=== PATIENT | male | born 1945 | race Caucasian/White ===

== ENCOUNTER 2025-04-05 11:53 | Outpatient (AMB) | payer MEDICARE, SELFPAY ==
--- OUTSIDE RECORDS SUMMARY | 2025-04-05 14:28 | XMS_ITS | Clinical Summary ---
Author Organization [facility] Address [address] [place] [address] Phone Care Team Providers Care Bartenders Name Role Phone Rafy Russell DO Primary Care Provider Allergies No known active allergies Medications melatonin 10 mg tablet Take 1 tablet (10 mg total) by mouth at bedtime. Active oxymetazoline (Afrin, oxymetazoline,) 0.05 % nasal spray Administer 1 spray into each nostril 1 (one) time each day if needed for congestion. Active ascorbic acid (VITAMIN C) 500 mg chewable tablet Chew 2 tablets (1,000 mg total) 1 (one) time each day. 05/15/20 Active NIFEdipine XL (PROCARDIA XL) 60 mg 24 hr tablet Take 1 tablet (60 mg total) by mouth 1 (one) time each day. 05/15/20 Active losartan (COZAAR) 100 mg tablet Take 1 tablet (100 mg total) by mouth 1 (one) time each day. Active Eliquis 5 mg tablet Take 1 tablet (5 mg total) by mouth 2 (two) times a day. 05/30/20 24 Active coenzyme Q-10 10 mg capsule Take 10 capsules (100 mg total) by mouth 1 (one) time each day. Active chlorthalidone (HYGROTON) 25 mg tablet Take 1 tablet (25 mg total) by mouth 1 (one) time each day. Active folic acid/multivit-m in/lutein (CENTRUM SILVER ORAL) Take 1 tablet by mouth 1 (one) time each day. Active atorvastatin (LIPITOR) 80 mg tablet Take 1 tablet (80 mg total) by mouth 1 (one) time each day. Active cholecalciferol (VITAMIN D-3) 25 mcg (1,000 unit) tablet Take 1 tablet (1,000 Units total) by mouth 1 (one) time each day. Active leuprolide (ELIGARD) 45 mg syringe Inject 45 mg under the skin every 6 (six) months. With urology Active omeprazole (PriLOSEC) [address] capsule Take 1 capsule (40 mg total) by mouth 1 (one) time each day. Do not crush or chew. Active tamsulosin (FLOMAX) 0.4 mg 24 hr capsule Take 1 capsule (0.4 mg total) by mouth 1 (one) time each day after dinner. Capsules should be taken 30 minutes following the same meal each day. Active Multaq 400 mg tablet TAKE 1 TABLET BY MOUTH TWICE A DAY 180 tablet 1 01/18/20 25 Active fluticasone/ume clidin/vilanter (TRELEGY ELLIPTA INHL) Inhale by mouth. 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 90 each 03/09/20 25 Active ezetimibe (ZETIA) 10 mg tabletIndicatio ns:Hypercholest erolemia Take 1 tablet (10 mg total) by mouth 1 (one) time each day. 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 90 each 03/09/20 25 025 Discontinued Hospital, Clinic, or Other Facility Administered Medication Ordered Dose Route Frequency Start Date End Date Status TC-99M tetrofosmin P radio-isotope injection 9.3 millicurie 9.3 millicurie IV Once in imaging 03/23/2025 03/23/2025 Ended regadenoson (LEXISCAN) injection 0.4 mg 0.4 mg IV Once in imaging 03/23/2025 03/23/2025 End ed TC-99M tetrofosmin P radio-isotope injection 30.1 millicurie 30.1 millicurie IV Once in imaging 03/23/2025 03/23/2025 Ende d Active Problems Problem Noted Date Diagnosed Date Secondary hypercoagulable state ([facility] V24) Assessment & Plan (03/09/2025 9:38 AM EDT): Chronic fatigue 03/09/2025 Assessment & Plan (03/09/2025 9:38 AM EDT): As above, fatigue has been notable since starting Eligard which he has assumed is causative. We will continue to follow this. Orders: Complete blood count; Future Bradycardia 03/09/2025 Assessment & Plan (03/09/2025 9:38 AM EDT): As above, we are decreasing carvedilol from 6.25 mg twice daily to 3.125 mg twice daily; he will continue to monitor his heart rates and symptoms at home, calling these results to us in approximately 2 weeks. We will continue to readdress this as indicated. Aortic dilatation ([facility] V24) 03/09/2025 Assessment & Plan (03/09/2025 9:38 AM EDT): Most recent echocardiogram in 2020 showed a mildly dilated aorta at the sinus of Valsalva at 4.1 cm; we will update an echocardiogram for reevaluation of this. Orders: Transthoracic echocardiogram (TTE) complete with PRN contrast, bubble, strain, and 3D order panel; Future Class 1 obesity 07/15/2024 Assessment & Plan (03/09/2025 9:38 AM EDT): Patient is obese. Approaches towards weight loss are discussed, including burning more calories than one takes in by portion control and regular exercise with an emphasis on duration rather than intensity. 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 While he does not complain of any chest pain, his shortness of breath is worsening and may be indicative of underlying ischemia; as such, he is amenable to updating an ischemic workup with a nuclear stress test. He reports that in the past when he has tried to ambulate on the treadmill, he has not been able to achieve the appropriate heart rate; as such we will do this pharmacologically. In the interim, he will continue with carvedilol and atorvastatin; he is not on aspirin therapy secondary to concurrent Eliquis use. We discussed cardiac risk reduction through lifestyle modifications with healthy diet, and weight management. The patient was advised to seek emergent medical attention by calling 911 if they were to develop severe dyspnea, chest pain that did not resolve with rest, or if they were to faint. Orders: ECG 12 lead Nuclear stress test with myocardial perfusion; Future Lipid panel with reflex to direct LDL; Future carvediloL (COREG) 3.125 mg tablet; Take 1 tablet (3.125 mg total) by mouth 2 (two) times a day with meals. Paroxysmal atrial fibrillation ([facility] V24, [facility] V28) 08/13/2021 Overview (07/15/2024): Last Assessment & Plan: Heart rate is controlled on BB, rhythm is controlled on Multaq, anticoagulated on Pradaxa. Creatinine clearance calculated at 57. He understands risks and benefits of anticoagulation and wished to continue. Assessment & Plan (03/09/2025 9:38 AM EDT): As above, the patient is noted to be bradycardic on ECG today; he notes that his heart rate rarely comes out of the 50s while at home and will only go into the 70s with exertion. He verbalizes that he does not believe his heart rate goes up enough when he is exerting himself and that may be why he is short of breath. As such, we are decreasing carvedilol to 3.125 mg twice daily as above; he will continue to monitor his heart rate at home as above. He will also remain on Multaq. We discussed the risks and benefits of continuing with anticoagulation for cardioembolic prophylaxis and he wishes to continue current plan. He is on the appropriate dose of Eliquis 5 mg twice daily for his age of 79 years, his weight of greater than 60 kg, and creatinine of less than 1.5. He is aware to seek urgent medical attention for any uncontrolled bleeding, signs or symptoms of GI or other internal bleeding, or for any head injury. History of coronary angioplasty with insertion o f stent 02/19/2021 Assessment & Plan (03/09/2025 9:38 AM EDT): Orders: Nuclear stress test with myocardial perfusion; Future FERGUSON (dyspnea on exertion) 02/19/2021 Assessment & Plan (03/09/2025 9:38 AM EDT): The patient's dyspnea on exertion may be multifactorial in origin related to advanced age, obesity, deconditioning secondary to Eligard use which has caused him to be fatigued and subsequently less active, underlying pulmonary disease, and also possible ischemia for which we are updating ischemic workup as above. He offers no other symptoms to cause concern for overt heart failure and otherwise appears euvolemic on exam today. Nevertheless, we will obtain echocardiogram to reevaluate cardiac structure and function as his most recent study was 2020. We will update a CBC to rule out anemia as contributory. We will await these results and proceed accordingly. He is aware to seek urgent medical attention for any shortness of breath that does not resolve with rest. Orders: Transthoracic echocardiogram (TTE) complete with PRN contrast, bubble, strain, and 3D order panel; Future Nuclear stress test with myocardial perfusion; Future Complete blood count; Future Acute nontraumatic kidney injury ([facility] V24) 0 10/16/2020 Bilateral renal artery stenosis ([facility] V24) Stage 3a chronic kidney disease ([facility] V24, S/[facility] V28) 10/16/2020 Hypercholesterolemia 10/16/2020 Assessment & Plan (03/09/2025 9:38 AM EDT): No recent lipid panel on file; we will update a lipid panel and readdress as indicated. In the interim, continue atorvastatin 80 mg daily. Orders: Lipid panel with reflex to direct LDL; Future Hypomagnesemia 10/16/2020 Non-STEMI (non-ST elevated m yocardial infarction) ([facility] V24, [facility] V28) 10/16/2020 Overview (07/15/2024): Last Assessment & Plan: No ischemic symptoms, feeling well. Continue ASA, BB, statin. PAD (peripheral artery disease) ([facility] V24) Aortoiliac occlusive disease ([facility] V24, [facility] V28) 06/01/2018 Claudication of both lower extremities ([facility] V24) 06/01/2018 Groin pain, chronic, right 06/01/2018 Allergic rhinitis 05/07/2018 Chronic obstructive pulmonar y disease ([facility] V24, [facility] V28) 05/07/2018 Essential hypertension 05/07/2018 Overview (07/15/2024): Last Assessment & Plan: Running on the low side today, he tells me this is normal for him after he takes his medications it does run on the low side. However after a few hours this normalizes and increases. He monitors this closely. He also follows with renal and with vascular, s/p bilateral renal stents. Continue current regimen. Assessment & Plan (03/09/2025 9:38 AM EDT): Blood pressure is favorable on current medical therapy; however, he is noted to be bradycardic today which may be symptomatic given his fatigue and shortness of breath with exertion. Additionally, he reports a heaviness in his arms and his legs that may be related to carvedilol but previous to the start of Maura this was not an issue. Nevertheless, for these reasons, we will have him trial decreased dose of carvedilol at 3.125 mg twice daily to see if this improves symptoms including increased augmentation of heart rate with exertion. He will monitor his blood pressures and heart rates 1 to 2 hours after taking his morning medications, relaying these readings to us approximately 2 weeks, sooner as needed for any significant hypertension or other concerning symptoms/findings. Once we have these readings, we will readdress this as indicated. In addition to decreased dose of carvedilol, he will continue with chlorthalidone, losartan, and nifedipine. His most recent metabolic panel from 02/21/2025 showed stable renal function and electrolytes. Orders: Complete blood count; Future carvediloL (COREG) 3.125 mg tablet; Take 1 tablet (3.125 mg total) by mouth 2 (two) times a day with meals. Gastroesophageal reflux disease 05/07/2018 Hyperlipidemia 05/07/2018 Overview (07/15/2024): Last Assessment & Plan: Last lipid panel 10/21 total cholesterol 114, HDL 30, LDL 54. Continue statin. Goal LDL is less than 70. 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; History of coronary angioplasty with insertion of stent; FERGUSON (dyspnea on exertion) 03/09/2025 8:40 AM EDT Office Visit [facility] [address] [place] [address] Shaina Garg NP 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 (Primary Dx); History of coronary angioplasty with insertion of stent; Hypercholesterolemia; Essential hypertension; Paroxysmal atrial fibrillation (CMS/HCC V24, CMS/HCC V28); Secondary hypercoagulable state ([facility] V24); Bradycardia; FERGUSON (dyspnea on exertion); Chronic fatigue; Class 1 obesity; Aortic dilatation ([facility] V24) from Last 3 Months Immunizations Name Administration Dates Next Due Influenza Quadravalent, 0.5m l (Fluad) 65yo and older 05/24/2021 Influenza Quadravalent, 0.5m l (Fluzone High-dose) 65yo and older 06/17/2022 Influenza trivalent, 0.5mL ( Fluzone High-dose) 65yo and older 05/06/2019,05/24/2018,09/07/2017 Surgical History Surgery Date Site/Laterality Comments HERNIA REPAIR 06/13/2015 Right PROCEDURE: HISTORICAL HERNIA REPAIR/ING; COMMENT: with mesh BACK SURGERY PROCEDURE: HISTORICAL BACK SURGERY; COMMENT: x 4 KNEE SURGERY PROCEDURE: HISTORICAL KNEE SURGERY CARPAL TUNNEL RELEASE Bilateral PROCEDURE: HISTORICAL CARPAL TUNNEL REL EYE SURGERY PROCEDURE: HISTORICAL EYE SURGERY; COMMENT: x 5 Medical History Medical History Date Comments Allergic rhinitis 05/07/2018 DX:Allergic rh initis COPD (chronic obstructive pu lmonary disease) ([facility] V24, [facility] V28) 05/07/2018 DX:COPD (chronic o bstructive pulmonary disease) ([facility]) Hypertension 05/07/2018 DX:Hypertension Hyperlipidemia 05/07/2018 DX:Hyperlipidemi a GERD (gastroesophageal reflux disease) 05/07/2018 DX:GERD (gastroesophageal reflux disease) Osteoarthritis 05/07/2018 DX:Osteoarthriti s Family History Medical History Relation Name Comments Coronary artery disease Father Emphysema Mother Relation Name Status Comments Father Mother Social History Tobacco Use Types Packs/Day Years Used Date Smoking Tobacco: Former Cigarettes Q uit: 08/03/1994 Smokeless Tobacco: Never Alcohol Use Standard Drinks/Week Comments No 0 (1 standard drink = 0.6 oz pur e alcohol) Sex and Gender Information Value Date Recorded Sex Assigned at Not on file Legal Sex Male 9:30 PM EST Gender Identity Not on file Sexual Orientation Not on file Obstetrics History Last Filed Vital Signs Vital Sign Reading Time Taken Comments Blood Pressure 121/60 03/09/2025 8:33 AM EDT Pulse 55 07/20/2024 11:04 AM EST Temperature 36.1 C (97 F) 07/20/2024 11:04 AM EST Respiratory Rate 18 07/20/2024 11:04 AM EST Oxygen Saturation 96% 03/09/2025 8:33 AM EDT Inhaled Oxygen Concentration - - Weight 104 kg (230 lb) 03/23/2025 1:15 PM EDT Height 180.3 cm (5' 11 ) 03/23/2025 1:15 PM EDT Body Mass Index 32.08 03/23/2025 1:15 PM EDT Plan of Treatment Upcoming Encounters Date Type Department Care Team (Late st Contact Info) Description 05/18/2025 2:30 PM EDT Ancillary Procedure [facility] [address] [place] [address] 06/12/2025 11:10 AM EST Office Visit [facility] [address] [place] [address] Shaina Garg NP [address] [place] [address] [address] [place] [address] Health Maintenance Due Date Last Done Comments DTaP,Tdap,and Td Vaccines (1 - Tdap) 12/08/1964 Pneumococcal Vaccine: 50+ Years (1 of 2 - PCV) 12/08/1963 Zoster Vaccines (1 of 2) 12/08/1964 RSV Immunization Adult Patients (1 - 1-dose 75+ series) 12/08/2019 Falls Risk Assessment 07/12/2022 Social Influencers of Health Screening 07/12/2022 Hypertension/CHF/CAD Annual BMP Blood Test 07/13/2022 Medicare Annual Wellness Visit 03/24/2024 03/24/2023 Depression Screening 08/03/2024 COVID-19 Vaccine (6 - Pfizer risk 2023- season) 2025 03/31/2024, 07/09/2022, 05/24/2021, Additional history exists Influenza Vaccine (#1) 2025 , 06/05/2023, 06/17/2022, Additional history exists Cholesterol Screening (Lipid Panel) 03/09/2030 03/09/2025 HIB Vaccines Aged Out No longer eligi ble based on patient's age to complete this topic HPV Vaccines Aged Out No longer eligi ble based on patient's age to complete this topic Hepatitis A Vaccines Aged Out No long er eligible based on patient's age to complete this topic Hepatitis B Vaccines Aged Out No long er eligible based on patient's age to complete this topic IPV Vaccines Aged Out No longer eligi ble based on patient's age to complete this topic MMR Vaccines Aged Out No longer eligi ble based on patient's age to complete this topic Meningococcal ACWY Vaccine Aged Out N o longer eligible based on patient's age to complete this topic Meningococcal B Vaccine Aged Out No l onger eligible based on patient's age to complete this topic RSV Immunization Patients Under 20 months Aged Out No longer eligible based on patient's age to complete this topic Varicella Vaccines Aged Out No longer eligible based on patient's age to complete this topic Procedures Procedure Name Priority Date/Time Associated Diagnosis Comments NM LEXISCAN STRESS TEST W/ MYOCARDIAL PERFUSION Routine 03/23/2025 4:35 PM EDT 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 History of coronary angioplasty with insertion of stent FERGUSON (dyspnea on exertion) LIPOPROTEIN Routine 03/09/2025 12:00 PM EDT LIPID PANEL WITH REFLEX TO LIPOPROTEIN NMR Routine 03/09/2025 12:00 PM EDT COMPLETE BLOOD COUNT Routine 03/09/2025 12:00 PM EDT Essential hypertension FERGUSON (dyspnea on exertion) Chronic fatigue ECG 12-LEAD Routine 03/09/2025 8:47 AM EDT 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 from Last 3 Months Results * NM LEXISCAN STRESS TEST W/ MYOCARDIAL PERFUSION (03/23/2025 4:35 PM EDT) Exercise/injec tion duration (min) 0 CV PACS STRESS Exercise/injec tion duration (sec) 36 CV PACS STRESS Peak SBP 113 mmHg CV PACS STRESS Peak DBP 60 mmHg CV PACS STRESS Peak HR 102 bpm CV PACS STRESS Baseline HR 102 bpm CV PACS STRESS Baseline SBP 113 mmHg CV PACS STRESS Baseline DBP 60 mmHg CV PACS STRESS Estimated workload 1.0 METS CV PACS STRESS Percent HR 73 % CV PACS STRESS Rate Pressure Product 11,526.0 mmHg*bpm CV PACS STRESS Target HR 119 bpm CV PACS STRESS O2 sat rest 96 % CV PACS STRESS TID 1.04 CV PACS STRESS Nuc Stress EF 63 % CV PAC S STRESS Nuc Rest EF 67 % CV PACS STRESS BSA 2.29 m2 CV PACS STRESS Anatomical Region Laterality Modality Nuclear Medicine 03/23/2025 2:30 PM EDT 03/23/2025 3:03 PM EDT Impressions 03/23/2025 11:25 PM EDT Normal Regadenoson stress test with nuclear imaging. No chest pain or EKG changes consistent with ischemia. Nuclear imaging revealed no significant perfusion defects . There is a normal TID ratio. Gated SPECT imaging was performed and revealed an LVEF of 67 %. Narrative 03/23/2025 11:25 PM EDT Stress Findings A pharmacological stress test was performed using regadenoson, 0.4 mg IV over 10-15 seconds, followed by radiopharmacological injection 10 seconds post infusion. Total stress time was 0 min and 36 sec. The patient reached the end of the protocol. The patient's hemodynamic response was adequate for diagnosis. Blood pressure demonstrated a normal response. Heart rate demonstrated a normal response. The patient reported no symptoms during the stress test. ECG 79-year-old male with past medical history of coronary artery disease status post drug-eluting stent to the circumflex in 2016, atrial fibrillation, hypertension, hyperlipidemia, renal artery stenosis, CKD, COPD, claudication, prostate cancer status post radiation and hormone therapy who presents today for a pharmacologic nuclear stress test to rule out ischemia in the setting of dyspnea on exertion. His last dose of carvedilol 3.125 mg was this morning The ECG shows sinus bradycardia. There were no arrhythmias during stress. There is no significant ST abnormalities during stress. There were no arrhythmias during recovery. Nuclear Study Quality Study technique: MPI, SPECT, multi, rest and stress, 1 day and gated. Overall image quality is good. CT attenuation correction was utilized. No radiopharmaceutical dose was extravasated. Stress Function Comments Stress ejection fraction is 63%. Rest Function Comments Resting ejection fraction was 67%. Shaina Garg NP CV STRESS PROCEDURES Final Result * (ABNORMAL) Lipoprotein (03/09/2025 12:00 PM EDT) LDL-P 1,120(H) <1,000 nmol/L [facility] Comment: Low < 1000 Moderate 1000 - 1299 Borderline-High 1300 - 1599 High 1600 - 2000 Very High > 2000 HDL-P (Total) 24.4(L) >=30.5 umol/L [facility] Small LDL-P 837(H) <=527 nmol/L [facility] LDL Size 19.8(L) >20.5 nm [facility] Comment: INTERPRETATIVE INFORMATION PARTICLE CONCENTRATION AND SIZE <--Lower CVD Risk Higher CVD Risk--> LDL AND HDL PARTICLES Percentile in Reference Population HDL-P (total) High 75th 50th 25th Low >34.9 34.9 30.5 26.7 <26.7 Small LDL-P Low 25th 50th 75th High <117 117 527 839 >839 LDL Size <-Large (Pattern A)-> <-Small (Pattern B)-> 23.0 20.6 20.5 19.0 Small LDL-P and LDL Size are associated with CVD risk, but not after LDL-P is taken into account. LP-IR Score 89(H) <=45 [facility] Comment: INSULIN RESISTANCE MARKER <--Insulin Sensitive Insulin Resistant--> Percentile in Reference Population Insulin Resistance Score LP-IR Score Low 25th 50th 75th High <27 27 45 63 >63 LP-IR Score is inaccurate if patient is non-fasting. The LP-IR score is a laboratory developed index that has been associated with insulin resistance and diabetes risk and should be used as one component of a physician's clinical assessment. 03/09/2025 12:0 0 PM EDT 03/09/2025 Narrative [facility] - 03/10/2025 8:07 PM EDT Performed at: 02 - [address] [id number] Loan Manager: Osmin Lucio MD, Phone: [phone] Shaina Garg [employer] LAB BLOOD ORDERABLES Final Result [facility] * (ABNORMAL) Lipid panel with reflex to lipoprotein NMR (03/09/2025 12:00 PM EDT) [facility] Cholesterol Total 129 100 - 199 mg/dL [facility] HDL Cholesterol 31(L) >39 mg/dL [facility] LDL/HDL Ratio 2.4 0.0 - 3.6 ratio [facility] Comment: LDL/HDL Ratio Men Women 1/2 Avg.Risk 1.0 1.5 Avg.Risk 3.6 3.2 2X Avg.Risk 6.2 5.0 3X Avg.Risk 8.0 6.1 Non-HDL Cholesterol 98 0 - 129 mg/dL [facility] Triglycerides 139 0 - 149 mg/dL [facility] LDL Chol Calc (NIH) 73 0 - 99 mg/dL [facility] 1 03/09/2025 12:0 0 PM EDT 03/09/2025 Narrative [facility] - 03/10/2025 8:07 PM EDT Test(s) 636986-[id number]; [id number]-K (Total); [id number]-[id number] LDL-P; 278855-BFR Size; [id number]-[id number] Score was developed and its performance characteristics determined by [facility]. It has not been cleared or approved by the Food and Drug Administration. Performed at: 01 - [address] [id number] Loan Manager: Jaylyn Burnett MD, Phone: [phone] Shaina Garg [employer] LAB BLOOD ORDERABLES Final Result [facility] * (ABNORMAL) Complete blood count (03/09/2025 12:00 PM EDT) WBC 4.2 3.4 - 10.8 x10E3/uL [facility] 1 RBC 4.05(L) 4.14 - 5.80 x10E6/uL [facility] 1 Hemoglobin 11.8(L) 13.0 - 17.7 g/dL [facility] 1 Hematocrit 36.8(L) 37.5 - 51.0 % [facility] MCV 91 79 - 97 fL [facility] MCH 29.1 26.6 - 33.0 pg [facility] 1 MCHC 32.1 31.5 - 35.7 g/dL [facility] 1 RDW 13.9 11.6 - 15.4 % [facility] 1 Platelets 160 150 - 450 x10E3/uL [facility] 1 Blood Venous blood specimen / Unknown 03/09/2025 12:00 PM EDT 03/09/2025 Narrative [facility] 1 - 03/10/2025 4:06 AM EDT Performed at: [facility] [id number] Loan Manager: Jaylyn Burnett MD, Phone: [phone] Shaina Garg AIRCRA[employer] LAB BLOOD ORDERABLES Final Result Performing Organization Address City/[facility]/ZIP Co de Phone Number [facility] 1 * ECG 12 lead (03/09/2025 8:47 AM EDT) Ventricular Rate ECG 52 BPM GEMUSE Atrial Rate 52 BPM GEMUSE P-R Interval 164 ms GEMUSE QRS Duration 92 ms GEMUSE Q-T Interval 466 ms GEMUSE QTc 433 ms GEMUSE P Wave [place] 29 degrees GEMUSE R [place] 11 degrees GEMUSE T [place] 5 degrees GEMUSE ECG Interpretation Sinus bradycardia with occasional Premature ventricular complexes Otherwise normal ECG When compared with ECG of 21-JUL-2022 10:39, Premature ventricular complexes are now Present Confirmed by MD Nick, Jon ([id number]) on 03/13/2025 2:02:01 PM GEMUSE 03/09/2025 8:42 AM EDT 03/13/2025 2:02 PM EDT Shaina Garg [employer] ECG ORDERABLES Edite d Result - Final GEMUSE from Last 3 Months Insurance MEDICARE [facility] Care Teams Bartenders Relationship Specialty Start Date End Date Rafy Russell DO [address] [facility] [address] [place] [address] PCP - General Internal Medicine 03/09/25
--- OUTSIDE RECORDS SUMMARY | 2025-04-05 14:29 | XMS_ITS ---
Author Organization [facility] Address [address] [place] [address] Phone Care Team Providers Care Sewer And Cutter Finger Buff Material Name Role Phone Rafy Russell DO Primary Care Provider Active Problems Problem Noted Date Diagnosed Date Secondary hypercoagulable state ([facility]24) Assessment & Plan (03/09/2025 9:38 AM [...] to readdress this as indicated. Aortic dilatation ([facility] V24) 03/09/2025 Assessment & Plan (03/09/2025 9:38 [...] on duration rather than intensity. Prostate cancer ([facility] V24, [facility] V28) 06/06 Cancer Staging:Clinical:Stage IIC(cT2a, cN0, cM0, PSA: 7.8, Grade Group: 4) - Unsigned Coronary artery disease invo lving [place] coronary artery of [place] heart without angina pectoris 02/11/2022 Assessment & [...] a day with meals. Paroxysmal atrial fibrillation ([facility] V24, [facility] V28) 08/13/2021 Overview (07/15/2024): Last Assessment & [...] blood count; Future Acute nontraumatic kidney injury ([facility]) 0 10/16/2020 Bilateral renal artery stenosis ([facility] V24) Stage 3a chronic kidney disease ([facility] V24, [facility] V28) 10/16/2020 Hypercholesterolemia 10/16/2020 Assessment & Plan (03/09/2025 9:38 AM EDT): No recent lipid panel on file; we will update a lipid panel and readdress as indicated. In the interim, continue atorvastatin 80 mg daily. Orders: Lipid panel with reflex to direct LDL; Future Hypomagnesemia 10/16/2020 Non-STEMI (non-ST elevated m yocardial infarction) ([facility] V24, [facility] V28) 10/16/2020 Overview (07/15/2024): Last Assessment & Plan: No ischemic symptoms, feeling well. Continue ASA, BB, statin. PAD (peripheral artery disease) ([facility] V24) Aortoiliac occlusive disease ([facility] V24, [facility] V28) 06/01/2018 Claudication of both lower extremities ([facility] V24) 06/01/2018 Groin pain, chronic, right 06/01/2018 Allergic rhinitis 05/07/2018 Chronic obstructive pulmonar y disease ([facility] V24, [facility] V28) 05/07/2018 Essential hypertension 05/07/2018 Overview (07/15/2024): [...] LDL is less than 70. Osteoarthritis 05/07/2018 Current Oncology Plans No current plan information found. Past Plans No past plan information found. Radiation Treatments * Treatment Site Started On Last Treated On Elapsed Days Fractions Complete Last Fraction Dose Given/Prescribed Total Dose Given/Prescribed Technique prostate + LN 05/16/20 24 06/22/20 24 37 28 of 28 250 cGy / 250 cGy 7,000 cGy / 7, 000 cGy 3 ARC VMAT
--- OUTSIDE RECORDS SUMMARY | 2025-04-05 14:29 | XMS_ITS | Clinical Summary ---
Author Organization [facility] Address [address] [facility] [address] [place] [address] Phone Care Team Providers Care Fur Finisher Name Role Phone Rafy Slade DO Primary Care Provide r Allergies No known active allergies Medications aspirin (ST ANTONIA) 81 MG EC tablet Take 1 tablet by mouth 1 (one) time each day Active atorvastatin (LIPITOR) 80 MG tablet Take 1 tablet by mouth 1 (one) time each day 6 Active dabigatran etexilate (Pradaxa) 150 MG capsule Take 1 capsule by mouth 2 (two) times a day Active dronedarone (Multaq) 400 MG tablet Take 1 tablet by mouth 2 (two) times a day Active melatonin 3 MG tablet Take 1 tablet by mouth at bed time Active omeprazole (PriLOSEC) [address] capsule Take 1 capsule by mouth 1 (one) time each day Active Multiple Vitamin (MULTIVITAMIN ADULT PO) Take 1 capsule by mouth 1 (one) time each day Active Magnesium 200 MG tablet Take 2 tablets by mouth 3 (three) times a day Active GLUCOSAMINE CHONDROITIN COMPLX PO 1 (one) time each day Active Coenzyme Q10 (Co Q-10) 100 MG capsule Take 1 tablet by mouth 1 (one) time each day Active carvedilol (COREG) 6.25 MG tablet TAKE 1 TABLET BY MOUTH TWICE A DAY 180 tablet 3 3 Active Fluticasone-Umecl idin-Vilant (TRELEGY ELLIPTA IN) Inhale Active losartan (COZAAR) 100 MG tabletIndications :Renal artery stenosis (HCC),Stage 3a chronic kidney disease (HCC),Essential hypertension TAKE 1 TABLET BY MOUTH 1 TIME EACH DAY. 90 tablet 3 5 Active NIFEdipine CC (ADALAT CC) 60 MG 24 hr tabletIndications :Hypertension Take 1 tablet (60 mg total) by mouth 1 (one) time each day before breakfast Do not crush, chew, or split. 90 tablet 3 5 10/25/19 26 Active chlorthalidone 25 MG tabletIndications :Hypertension,Rocael al artery stenosis (HCC),Stage 3a chronic kidney disease (HCC),Essential hypertension TAKE 1 TABLET BY MOUTH EVERY DAY 90 tablet 1 5 Active leuprolide (Eligard) 45 MG injection Inject 45 mg under the skin Active Active Problems Problem Noted Date Diagnosed Date Acute nontraumatic kidney injury 10/16/2020 Renal artery stenosis 10/16/2020 Stage 3a chronic kidney disease 10/16/2020 Chronic obstructive pulmonary disease 10/16/2020 Essential hypertension 10/16/2020 Gastroesophageal reflux disease 10/16/2020 Hypercholesterolemia 10/16/2020 Hypomagnesemia 10/16/2020 Myocardial infarction 10/16/2020 Encounters Date Type Department Care Team Description 03/01/2025 3:45 PM EDT Office Visit [facility] [address] [place] [phone] Kelechi Ching MD Stage 3 chronic kidney disease, not otherwise specified (HCC) (Primary Dx); Hypertension; Renal artery stenosis (HCC); Microalbuminuria 01/14/2025 Refill [facility] [address] [facility] [address] [place] [address] Kelechi Ching MD Hypertension; Renal artery stenosis (HCC); Stage 3a chronic kidney disease (HCC); Essential hypertension from Last 3 Months Family History Medical History Relation Comments Heart disease Father Diabetes Mother grandfather Relation Status Comments Father Mother Social History Tobacco Use Types Packs/Day Years Used Date Smoking Tobacco: Former Cigarettes Q uit: 08/03/1994 Smokeless Tobacco: Never Tobacco Cessation:Counseling Given: No Sex and Gender Information Value Date Recorded Sex Assigned at Not on file Legal Sex Male 4:45 PM EST Gender Identity Not on file Sexual Orientation Not on file Last Filed Vital Signs Vital Sign Reading Time Taken Comments Blood Pressure 130/66 03/01/2025 3:39 PM EDT Pulse 56 03/01/2025 3:39 PM EDT Temperature - - Respiratory Rate - - Oxygen Saturation 95% 10/17/2020 3:12 PM EDT Inhaled Oxygen Concentration - - Weight 102 kg (225 lb) 08/24/2024 4:25 PM EST Height 175.3 cm (5' 9 ) 10/17/2020 3:12 PM EDT Body Mass Index 33.23 10/17/2020 3:12 PM EDT Plan of Treatment Upcoming Encounters Date Type Department Care Team (Late st Contact Info) Description 02/21/2026 2:00 PM EDT Office Visit [facility] [address] [place] [address] Kelechi Ching MD [address] [address] Health Maintenance Due Date Last Done Comments Pneumococcal Vaccine: 50+ Years (1 of 2 - PCV) 12/08/1964 Influenza Vaccine (#1) 2025 , 05/06/2019, 05/24/2018, Additional history exists Hepatitis B Vaccine Aged Out No longe r eligible based on patient's age to complete this topic Procedures Procedure Name Priority Date/Time Associated Diagnosis Comments RENAL FUNCTION PANEL Routine 02/21/2025 10:19 AM EDT from Last 3 Months Results * (ABNORMAL) Renal Function Panel (02/21/2025 10:19 AM EDT) Glucose 106(H) 70 - 99 mg/dL [facility] BUN 25 8 - 27 mg/dL [facility] Creatinine 1.38(H) 0.76 - 1.27 mg/dL [facility] eGFR CKD-EPI CR 2020 52(L) >59 mL/min/1.7 3 [facility] BUN/Creatinine Ratio 18 10 - 24 [facility] Sodium 141 134 - 144 mmol/L [facility] Potassium 4.3 3.5 - 5.2 mmol/L [facility] Chloride 105 96 - 106 mmol/L [facility] Bicarbonate (CO2) 20 20 - 29 mmol/L [facility] Calcium 9.6 8.6 - 10.2 mg/dL [facility] Albumin 3.9 3.8 - 4.8 g/dL [facility] Phosphorus 3.2 2.8 - 4.1 mg/dL [facility] 02/21/2025 10:1 9 AM EDT 02/21/2025 us Kelechi Ching MD LAB BLOOD ORDERABLES Final Resul t [facility] [address] [place] [address] from Last 3 Months Insurance [facility] Medicare [facility] Medicare Care Teams Fur Finisher Relationship Specialty Start Date End Date Rafy Slade DO [address] [facility] [address] [place] [address] PCP - General 08/13/20
== END 2025-04-05 12:01 | disposition home or self-care (01) ==
PROVIDERS: Visit Provider Registered Nurse Emergency
DX: J30.89 Other allergic rhinitis (principal)
CPT/HCPCS: 95117; 95165

== ENCOUNTER 2025-05-08 11:05 | Outpatient (AMB) | payer MEDICARE, SELFPAY ==
--- OUTSIDE RECORDS SUMMARY | 2025-05-08 13:35 | XMS_ITS ---
Author Organization [facility] Address [address] [place] [address] Phone Care Team Providers Care Director Of Orthopedics Name Role Phone Rafy Russell DO Primary Care Provider Active Problems Problem Noted Date Diagnosed Date Secondary hypercoagulable state ([facility] V24) Assessment & Plan [...] to readdress this as indicated. Aortic dilatation ([facility] V24) 03/09/2025 Assessment & [...] on duration rather than intensity. Prostate cancer ([facility] V24, [facility] V28) 06/06 Cancer Staging:Clinical:Stage IIC(cT2a, cN0, cM0, PSA: 7.8, Grade Group: 4) - Unsigned Coronary artery disease invo lving [place] coronary artery of [place] heart without angina pectoris 02/11/2022 Assessment & [...] a day with meals. Paroxysmal atrial fibrillation ([facility] V24, [facility] V28) 08/13/2021 Overview [...] blood count; Future Acute nontraumatic kidney injury ([facility]) 0 10/16/2020 Bilateral renal artery stenosis ([facility] V24) Stage 3a chronic kidney disease ([facility] V24, [facility] V28) 10/16/2020 Hypercholesterolemia 10/16/2020 Assessment & Plan (03/09/2025 9:38 AM EDT): No recent lipid panel on file; we will update a lipid panel and readdress as indicated. In the interim, continue atorvastatin 80 mg daily. Orders: Lipid panel with reflex to direct LDL; Future Hypomagnesemia 10/16/2020 Non-STEMI (non-ST elevated m yocardial infarction) ([facility] V24, [facility] V28) 10/16/2020 Overview (07/15/2024): Last Assessment & Plan: No ischemic symptoms, feeling well. Continue ASA, BB, statin. PAD (peripheral artery disease) ([facility] V24) Aortoiliac occlusive disease ([facility] V24, [facility] V28) 06/01/2018 Claudication of both lower extremities ([facility] V24) 06/01/2018 Groin pain, chronic, right 06/01/2018 Allergic rhinitis 05/07/2018 Chronic obstructive pulmonar y disease ([facility] V24, [facility] V28) 05/07/2018 Essential hypertension 05/07/2018 Overview (07/15/2024): [...] is less than 70. Osteoarthritis 05/07/2018 Current Treatment and Therapy Plans No current plan information found. Past Treatment and Therapy Plans No past plan information found. Past Radiation Episodes * IMRT: Prostate, Pelvic lymph nodeOverview* First Treatment Date Last Treatment Date Treatment Site Technique Goal Episode Provider 05/16/2024 06/22/2024 ProstatePelvic l ymph node IMRT Curative * Linked Problems Treatment Courses* Course 1 05/16/2024 - 06/22/2024 Treatment Sites Treatment Period Fraction Dose Fractions Total Dose prostate + LN 05/16/2024 - 06/22/2024 250 / 250 cGy 28 / 2 8 7,000 / 7,000 cGy
--- OUTSIDE RECORDS SUMMARY | 2025-05-08 13:35 | XMS_ITS | Clinical Summary ---
Author Organization [facility] Address [address] [facility] [address] [place] [address] Phone Care Team Providers Care Rayon Coner Name Role Phone Rafy Slade DO Primary [...] [facility] Visit [facility] [address] [address] Kelechi Ching MD Stage 3 chronic kidney disease, not otherwise specified (HCC) (Primary Dx); Hypertension; Renal artery stenosis (HCC); Microalbuminuria from Last 3 Months Family History Medical [...] Visit [facility] [address] [place] [address] Kelechi Ching MD [address] [address] Health Maintenance Due Date Last [...] Glucose 106(H) 70 - 99 mg/dL [facility] BUN 25 8 - 27 mg/dL [facility] Creatinine 1.38(H) 0.76 - 1.27 mg/dL [facility] eGFR CKD-EPI CR 2020 52(L) >59 mL/min/1.7 3 [facility] BUN/Creatinine Ratio 18 10 - 24 [facility] Sodium 141 134 - 144 mmol/L [facility] Potassium 4.3 3.5 - 5.2 mmol/L [facility] Chloride 105 96 - 106 mmol/L [facility] Bicarbonate (CO2) 20 20 - 29 mmol/L [facility] Calcium 9.6 8.6 - 10.2 mg/dL [facility] Albumin 3.9 3.8 - 4.8 g/dL [facility] Phosphorus 3.2 2.8 - 4.1 mg/dL [facility] 02/21/2025 10:1 9 AM EDT 02/21/2025 us Kelechi Ching MD LAB BLOOD ORDERABLES Final Resul t [facility] [address] [place] [address] from Last 3 Months Insurance [facility] Medicare [facility] Medicare Care Teams Rayon Coner Relationship Specialty Start Date End Date Rafy Slade DO [address] [place] [phone] PCP - General 08/13/20
--- OUTSIDE RECORDS SUMMARY | 2025-05-08 13:35 | XMS_ITS ---
Author Organization [facility] ([facility]) Address [address] [place] [address] Care Team Providers Care Resin Painter Name Role Phone Unavailable Unavailable Unavailable Allergies, Adverse Reactions, Alerts This patient has no known allergies or adverse reactions. Problems This patient has no known problems.
--- OUTSIDE RECORDS SUMMARY | 2025-05-08 13:35 | XMS_ITS | Clinical Summary ---
Author Organization [facility] Address [address] [place] [address] Phone Care Team Providers Care Target Protection Specialist Name Role Phone Rafy Russell DO Primary [...] mg total) 1 (one) time each day. 0 Active NIFEdipine XL (PROCARDIA XL) 60 mg 24 hr tablet Take 1 tablet (60 mg total) by mouth 1 (one) time each day. 0 Active losartan (COZAAR) 100 mg tablet Take 1 tablet (100 mg total) by mouth 1 (one) time each day. Active Eliquis 5 mg tablet Take 1 tablet (5 mg total) by mouth 2 (two) times a day. 4 Active coenzyme Q-10 10 mg capsule Take 10 capsules (100 mg total) by mouth 1 (one) time each day. Active chlorthalidone (HYGROTON) 25 mg tablet Take 1 tablet (25 mg total) by mouth 1 (one) time each day. Active folic acid/multivit-min /lutein (CENTRUM SILVER ORAL) Take 1 tablet by [...] MOUTH TWICE A DAY 180 tablet 1 5 Active fluticasone/umecl idin/vilanter (TRELEGY ELLIPTA INHL) Inhale by mouth. Active carvediloL (COREG) 3.125 mg tabletIndications :Coronary artery disease involving lone pine coronary artery of lone pine heart without angina pectoris,[facility] l hypertension Take 1 tablet (3.125 mg total) by mouth 2 (two) times a day with meals. 90 each 3 5 Active ezetimibe (ZETIA) 10 mg tabletIndications :Hypercholesterol emia Take 1 tablet (10 mg total) by mouth 1 (one) time each day. 90 each 3 5 03/16/20 26 Active Active Problems Problem Noted Date Diagnosed Date Secondary hypercoagulable state ([facility] V24) Assessment & Plan (03/09/2025 [...] to readdress this as indicated. Aortic dilatation ([facility] V24) 03/09/2025 Assessment & Plan [...] on duration rather than intensity. Prostate cancer (CMS/HCC V24, CMS/HCC V28) 06/06 Cancer Staging:Clinical:Stage IIC(cT2a, cN0, cM0, PSA: 7.8, Grade Group: 4) - Unsigned Coronary artery disease invo lving lone pine coronary artery of lone pine heart without angina pectoris 02/11/2022 Assessment & [...] a day with meals. Paroxysmal atrial fibrillation (CMS/HCC V24, CMS /HCC V28) 08/13/2021 Overview (07/15/2024): Last Assessment & [...] blood count; Future Acute nontraumatic kidney injury ([facility] V24) 0 10/16/2020 Bilateral renal artery stenosis ([facility] V24) Stage 3a chronic kidney disease ([facility] V24, [facility] V28) 10/16/2020 Hypercholesterolemia 10/16/2020 Assessment & Plan (03/09/2025 9:38 AM EDT): No recent lipid panel on file; we will update a lipid panel and readdress as indicated. In the interim, continue atorvastatin 80 mg daily. Orders: Lipid panel with reflex to direct LDL; Future Hypomagnesemia 10/16/2020 Non-STEMI (non-ST elevated m yocardial infarction) ([facility] V24, [facility] V28) 10/16/2020 Overview (07/15/2024): Last Assessment & Plan: No ischemic symptoms, feeling well. Continue ASA, BB, statin. PAD (peripheral artery disease) ([facility] V24) Aortoiliac occlusive disease ([facility] V24, [facility] V28) 06/01/2018 Claudication of both lower extremities ([facility] V24) 06/01/2018 Groin pain, chronic, right 06/01/2018 Allergic rhinitis 05/07/2018 Chronic obstructive pulmonar y disease ([facility] V24, [facility] V28) 05/07/2018 Essential hypertension 05/07/2018 [...] carvedilol [facility]. Nevertheless, for [...] Description 03/23/2025 1:00 PM EDT Ancillary Procedure [facility] - [address] [place] [id number] Coronary artery disease involving lone pine coronary artery of lone pine heart without angina pectoris; History of coronary angioplasty with insertion of stent; FERGUSON (dyspnea on exertion) 03/09/2025 8:40 AM EDT Office Visit [facility] - [address] [place] [address] Shaina Garg NP Coronary artery disease involving lone pine coronary artery of lone pine heart without angina pectoris (Primary Dx); History of coronary angioplasty with insertion of stent; Hypercholesterolemia; Essential hypertension; Paroxysmal atrial fibrillation ([facility] V24, [facility] V28); Secondary hypercoagulable state ([facility] V24); Bradycardia; FERGUSON (dyspnea on exertion); Chronic fatigue; Class 1 obesity; Aortic dilatation ([facility] V24) from Last 3 Months Immunizations Immunization Administration Dates Next Due Influenza Quadravalent, 0.5m [...] initis COPD (chronic obstructive pu lmonary disease) ([facility] V24, [facility] V28) 05/07/2018 DX:COPD (chronic o bstructive pulmonary disease) ([facility]) Hypertension 05/07/2018 DX:Hypertension Hyperlipidemia 05/07/2018 DX:Hyperlipidemi a [...] Description 05/18/2025 2:30 PM EDT Ancillary Procedure [facility] [address] [phone] 06/12/2025 11:10 AM EST Office Visit [facility] [address] [address] Shaina Garg NP [address] [address] Health Maintenance Due Date Last Done Comments [...] 4:35 PM EDT Coronary artery disease involving lone pine coronary artery of lone pine heart without angina pectoris History of coronary angioplasty with insertion of stent FERGUSON (dyspnea on exertion) LIPOPROTEIN Routine 03/09/2025 12:00 PM EDT LIPID PANEL WITH REFLEX TO LIPOPROTEIN NMR Routine 03/09/2025 12:00 PM EDT COMPLETE BLOOD COUNT Routine 03/09/2025 12:00 PM EDT Essential hypertension FERGUSON (dyspnea on exertion) Chronic fatigue ECG 12-LEAD Routine 03/09/2025 8:47 AM EDT Coronary artery disease involving lone pine coronary artery of lone pine heart without angina pectoris from Last 3 [...] * (ABNORMAL) Lipoprotein (03/09/2025 12:00 PM EDT) Pathologist [facility] LDL-P 1,120(H) <1,000 nmol/L [facility] 2 Comment: [...] - 03/10/2025 8:07 PM EDT Performed at: [address] [place] [id number] Flare Maker: Osimn Lucio MD, Phone: [phone] Shaina Garg NP LAB BLOOD ORDERABLES Final Result [facility] 2 * (ABNORMAL) Lipid panel with reflex to lipoprotein NMR (03/09/2025 12:00 PM EDT) [facility] Cholesterol Total 129 100 - 199 mg/dL [...] 149 mg/dL [facility] 1 LDL Chol Calc ([facility]) 73 0 - 99 mg/dL [facility] 1 03/09/2025 12:0 0 PM EDT 03/09/2025 Narrative [facility] 1 - 03/10/2025 8:07 PM EDT Test(s) 695397-YIJ-B; 745505-LKI-D (Total); 848962-Igmpl LDL-P; 087756-XUO Size; 989307-BF-IJ Score was developed and its performance characteristics determined by [facility]. It has not been cleared or approved by the Food and Drug Administration. Performed at: 01 - [address] [id number] Flare Maker: Jaylyn Burnett MD, Phone: [phone] Shaina Garg FLOTATION TENDER HELPER LAB BLOOD ORDERABLES Final Result [facility] 1 [...] - 03/10/2025 4:06 AM EDT Performed at: 01 - [address] [id number] Flare Maker: Jaylyn Burnett MD, Phone: [phone] Shaina Garg FLOTATION TENDER HELPER LAB BLOOD ORDERABLES Final Result [facility] 1 * ECG 12 lead (03/09/2025 8:47 AM EDT) Ventricular Rate ECG 52 BPM GEMUSE Atrial Rate 52 BPM [facility] P-R Interval 164 ms GEM[facility] QRS Duration 92 ms GEMUSE Q-T Interval 466 ms GEMUSE QTc 433 ms GEMUSE P Wave [place] 29 degrees GEMUSE R [place] 11 degrees GEMUSE T [place] 5 degrees GEMUSE ECG Interpretation Sinus bradycardia with occasional Premature ventricular complexes Otherwise normal ECG When compared with ECG of 21-JUL-2022 10:39, Premature ventricular complexes are now Present Confirmed by MD Nick, [place] ([id number]) on 03/13/2025 2:02:01 PM GEMUSE 03/09/2025 8:42 AM EDT 03/13/2025 2:02 PM EDT Shaina Garg FLOTATION TENDER HELPER ECG ORDERABLES Edite d Result - Final GEMUSE from Last 3 Months Insurance MEDICARE [facility] Care Teams Target Protection Specialist Relationship Specialty Start Date End Date Rafy Russell DO [address] [facility] [address] [place] [id number] PCP - General Internal Medicine 03/09/25
== END 2025-05-08 11:14 | disposition home or self-care (01) ==
LOC: HO.HMGAL 11:05
PROVIDERS: Visit Provider Registered Nurse Emergency
DX: J30.89 Other allergic rhinitis (principal)
CPT/HCPCS: 95117; 95165

== ENCOUNTER 2025-06-07 14:01 | Outpatient (AMB) | payer MEDICARE, SELFPAY ==
--- OUTSIDE RECORDS SUMMARY | 2025-06-07 17:15 | XMS_ITS | Data Portability ---
Author Organization [facility] Baljeet CRUZ_Vesna_ Address [address] [place] [address] Assessment No assessment recorded. Plan of Treatment Reminders Order Date Submit Date Provider Last Modified By Organization Details Last Modified Time Details Appointments None recorded. Lab rapid strep group A, throat 2015 016 In-Office Order, Internal Use Only DO Not Attach Compendium DO Not Attach Compendium, Do Not Delete/merge, [id number] 6 04:06:03 rapid flu (A+B) 2015 016 In-Office Order, Internal Use Only DO Not Attach Compendium DO Not Attach Compendium, Do Not Delete/merge, [id number] 6 04:06:03 Referral None recorded. Procedures pulse oximetry (PROC) 2015 016 In-Office Order, Internal Use Only DO Not Attach Compendium DO Not Attach Compendium, Do Not Delete/merge, [id number] 6 04:06:01 Surgeries None recorded. Imaging None recorded. Medication Orders Augmentin 875 mg-125 mg tablet 2015 016 Not available 6 04:06:14 Patient TargetsNo targets recorded. Patient Instructions Encounter Date Encounter Id Patient Instructions Last Modified By Organization Details Last Modified Time 04/15/2016 [id number] Rest and drink plenty of fluids. Take medications as prescribed. Tylenol 650mg every 6 hours as needed for pain or fever. Follow up with pcp in 7-10 days. rgum Not available 04/15/2016 11:59:48 Reason for Referral None Reported. Results Created Date Observation Date Name Description Value Unit Range Abnormal Flag Note LastModifiedBy Organization Detail LastModifiedTime 04/15/20 16 04/15/2016 rapid flu (A+B) Flu A negati ve Not Available In-Office Order Internal Use Only DO Not Attach Compendium DO Not Attach Compendium, Do Not Delete/merge, [id number] 04/15/2016 09:20:43 04/15/20 16 04/15/2016 rapid flu (A+B) Flu B negati ve Not Available In-Office Order Internal Use Only DO Not Attach Compendium DO Not Attach Compendium, Do Not Delete/merge, [id number] 04/15/2016 09:20:43 04/15/20 16 04/15/2016 rapid strep group A, throa t Strep negati ve Not Available In-Office Order Internal Use Only DO Not Attach Compendium DO Not Attach Compendium, Do Not Delete/merge, [id number] 04/15/2016 09:20:34 04/15/20 16 04/15/2016 pulse oxime try (PROC ) pulse oximetry 96% Not Available In-Off ice Order Internal Use Only DO Not Attach Compendium DO Not Attach Compendium, Do Not Delete/merge, [id number] 04/15/2016 09:20:05 Result Notes None recorded. Medical Equipment None Reported. Allergies No known drug allergies Medications Name Sig Start Date Stop Date Status Note LastModified by Organization Details LastModified Time Augmentin 875 mg-125 mg tablet Take 1 tablet every 12 hours by oral route. 2015 active Not Available Not Available Not Avai lable lisinopril 40 mg tablet Take 1 tablet every day by oral route. active Not Available Not Available No t Available Coreg active Not Available Not Availa ble Not Available hydrochlorothiaz phoebe active Not Available Not Available Not Available Vitals Date Recorded Body height Body weight Body mass index (BMI) Heart rate Body temperature Oxygen saturation Oxygen saturation in Arterial blood by Pulse oximetry Respiratory rate Systolic And Diastolic Provider Name and Address Organization Details Last Updated DateTime 6 175.26 cm 96105.4 7 g 29.5 kg/m2 83 /min 98 [degF] 95 % 95 % 13 /min 124/74 mm[Hg] June Harding [facility] 6 09:15:09 Social History Question Answer Notes LastModified by Organizat ion Details LastModified Time Tobacco Smoking Status Never Smoker June Harding len, [facility] 04/15/2016 09:17:49 Auto Related Injury? No Information not available 04/15/2016 Are You Blind Or Do You Have Difficulty Seeing? No Information not available 04/15/2016 What Is Your Level Of Caffeine Consumption? Moderate Information not available 04/15/2016 How Much Tobacco Do You Chew? None Information not available 04/15/2016 Are You Deaf Or Do You Have Serious Difficulty Hearing? No Information not available 04/15/2016 Which Illicit Or Recreational Drugs Have You Used? NONE Information not available 04/15/2016 Marital Status Informatio n not available 04/15/2016 How Much Tobacco Do You Smoke? No Information not available 04/15/2016 Sex: Unknown Functional Status Question Answer Note LastModified by Organization D etails LastModified Time What is your level of alcohol consumption? Moderate Information not available 04/15/2016 Are you currently employed? No Information not available 04/15/2016 Are you able to care for yourself independently? Yes Information not available 04/15/2016 What is your exercise level? Moderate Information not available 04/15/2016 Mental Status None recorded. Family History Relationship Description Onset Age of this Age Resolved Age Notes LastModified by Organization Details LastModified Time Father Malignant neoplastic disease lskehan Not available 2015 09:17:38 Mother Malignant neoplastic disease lskehan Not available 2015 09:17:38 Medical History Condition Response Coronary Artery Disease N Gout N Kidney Stones N Ear or Hearing Problems N Hyperthyroidism N Erectile Dysfunction N Hypogonadism N ADD or ADHD N Thyroid Problems N COPD N Hypothyroidism N Depression N Developmental or Behavioral Disorders N Skin Problems N Anemia N Constipation N Eczema, Hives or other skin conditions N Anxiety Disorder N Diabetes N Muscle, Joint, or Bone Problems N Vision or Eye Problems N Arthritis N Seizures/Epilepsy N Tuberculosis N Congenital Anomalies N Cancer N Stroke N Diverticulitis N Asthma N Allergies N Bladder or Kidney Problems N GERD/Reflux N High Cholesterol N Liver Disease N Heart Disease N Pulmonary Embolism N Fibromyalgia N Hypertension Y Osteoporosis N Kidney Disease N Past Encounters Encounter ID Performer Location Encounter Start Date Encounter Closed Date Diagnosis/Indication Diagnosis SNOMED-CT Code Diagnosis ICD10 Code Diagnosis IMO Codes Diagnosis Note [id number] Radha Antony PA-C [place] [id number] [facility] [address] [place] [address] 04/15/2016 08:28:30 04/15/2016 09:40:59 Acute sinusitis 69187901 J01.90 Health Concerns Section Related Observation LastModified by Organization Detai ls LastModified Time None Recorded Concern Status LastModified by Organization Details LastModified Time None Recorded Advance Directives Directive None Recorded Payers Insurance Date Sequence Insurance Name Policy Number Policy Jose Covered Member ID Jose Member ID Guarantor Name 04/15/2016 3 [place] Znae Webber [id number] Zane Webber 02/22/2017 1 [place] [id number] Zane Webber [id number] Zane Webber 04/15/2016 2 [employer] MED[employer]AL PLAN [id number] Zane Webber [id number] Zane Webber Notes Date Note Type Note Provider Name and Address Organization Details Recorded Time 04/15/2016 text/html This is 70 y/o male with c/o sorethroat, cough , sinus drainage and fatigue for 10 days. States he feels achy and has had yellow sinus drainage. He is here visiting this week and states he feels too bad to do the activities he would like. Radha Antony [facility] [place] [facility] 04/15/2016 12:00:40
--- OUTSIDE RECORDS SUMMARY | 2025-06-07 17:15 | XMS_ITS | Clinical Summary ---
Author Organization [facility] Address [address] [place] [address] Phone Care Team Providers Care Compensation Expert Name Role Phone Rafy Russell DO Primary [...] total) 1 (one) time each day. 05/15/20 20 Active NIFEdipine XL (PROCARDIA XL) 60 mg 24 hr tablet Take 1 tablet (60 mg total) by mouth 1 (one) time each day. 05/15/20 20 Active losartan (COZAAR) 100 mg tablet Take 1 tablet (100 mg total) by mouth 1 (one) time each day. Active coenzyme Q-10 10 mg capsule Take 10 capsules (100 mg total) by mouth 1 (one) time each day. Active chlorthalidone (HYGROTON) 25 mg tablet Take 1 tablet (25 mg total) by mouth 1 (one) time each day. Active folic acid/multivit-mi n/lutein (CENTRUM SILVER ORAL) Take 1 tablet by [...] DAY 180 tablet 1 01/18/20 25 Active fluticasone/umec lidin/vilanter (TRELEGY ELLIPTA INHL) Inhale by mouth. Active carvediloL (COREG) 3.125 mg tabletIndication s: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,Essenti al hypertension Take 1 tablet (3.125 mg total) by mouth 2 (two) times a day with meals. 90 each 3 03/09/20 25 Active ezetimibe (ZETIA) 10 mg tabletIndication s:Hypercholester olemia Take 1 tablet (10 mg total) by mouth 1 (one) time each day. 90 each 3 03/16/20 25 026 Active Eliquis 5 mg tabletIndication s:Paroxysmal atrial fibrillation (CMS/HCC V24, CMS/HCC V28) TAKE 1 TABLET BY MOUTH 2 TIMES DAILY 180 tablet 3 05/15/20 25 Active Eliquis 5 mg tablet Take 1 tablet (5 mg total) by mouth 2 (two) times a day. 05/30/20 24 025 Discontinued Hospital, Clinic, or Other Facility Administered Medication Ordered Dose Route Frequency Start Date End Date Status perflutren lipid microsphere (DEFINITY) 1.3 mL in sodium chloride 0.9% 8.7 mL injection 10 mL IV Once in imaging 05/18/2025 05/18/2025 End ed Active Problems Problem Noted Date Diagnosed Date Secondary hypercoagulable state (CMS/HCC V24) Assessment & Plan (03/09/2025 9:38 AM [...] to readdress this as indicated. 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 In the interim, continue atorvastatin 80 mg daily. Orders: Lipid panel with reflex to direct LDL; Future Hypomagnesemia 10/16/2020 Non-STEMI (non-ST elevated m yocardial infarction) ([facility] V24, [facility] V28) 10/16/2020 Overview (07/15/2024): Last Assessment & Plan: No ischemic symptoms, feeling well. Continue ASA, BB, statin. PAD (peripheral artery disease) ([facility] V24) Aortoiliac occlusive disease ([facility] V24, [facility] [place] V28) 06/01/2018 Claudication of both lower extremities ([facility] V24) 06/01/2018 Groin pain, chronic, right 06/01/2018 Allergic rhinitis 05/07/2018 Chronic obstructive pulmonar y disease ([facility] V24, [facility] V28) 05/07/2018 Essential hypertension 05/07/2018 Overview (07/15/2024): [...] carvedilol but previous to the start of Elikamarard this was not an issue. Nevertheless, for [...] Encounters Date Type Department Care Team Description 05/24/2025 Results Follow-Up [facility] Cardiology [facility] [address] [place] [address] Shaina Garg NP 05/18/2025 2:30 PM EDT Ancillary Procedure [facility] [address] [place] [address] FERGUSON (dyspnea on exertion); Aortic dilatation (CMS/HCC V24) 03/23/2025 1:00 PM EDT Ancillary Procedure [facility] [address] [place] [address] 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; History of coronary angioplasty with insertion of stent; FERGUSON (dyspnea on exertion) 03/09/2025 8:40 AM EDT Office Visit [facility] [address] [place] [address] Shaina Garg NP 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 (Primary Dx); History of coronary angioplasty with insertion of stent; Hypercholesterolemia; Essential hypertension; Paroxysmal atrial fibrillation (CMS/HCC V24, CMS/HCC V28); Secondary hypercoagulable state (CMS/HCC V24); Bradycardia; FERGUSON (dyspnea on exertion); Chronic fatigue; Class 1 obesity; Aortic dilatation (CMS/HCC V24) from Last 3 Months Immunizations Immunization [...] initis COPD (chronic obstructive pu lmonary disease) ([facility] V24, [facility] V28) 05/07/2018 DX:COPD (chronic o bstructive pulmonary [...] Sign Reading Time Taken Comments Blood Pressure 120/56 05/18/2025 2:45 PM EDT Pulse 55 07/20/2024 11:04 AM EST Temperature 36.1 C (97 F) 07/20/2024 11:04 AM EST Respiratory Rate 18 07/20/2024 11:04 AM EST Oxygen Saturation 96% 03/09/2025 8:33 AM EDT Inhaled Oxygen Concentration - - Weight 108 kg (237 lb) 05/18/2025 2:45 PM EDT Height 175.3 cm (5' 9 ) 05/18/2025 2:45 PM EDT Body Mass Index 35 05/18/2025 2:45 PM EDT Plan of Treatment Upcoming Encounters Date Type Department Care Team ([facility] st Contact Info) Description 06/12/2025 11:10 AM EST Office Visit [facility] [address] [facility] [address] [place] [address] Shaina Garg NP [address] [place] [address] [place] [address] Health Maintenance Due Date Last Done Comments [...] Procedure Name Priority Date/Time Associated Diagnosis Comments TRANSTHORACIC ECHOCARDIOGRAM (TTE) COMPLETE W/ CONTRAST Routine 05/18/2025 4:13 PM EDT FERGUSON (dyspnea on exertion) Aortic dilatation (CMS/HCC V24) NM LEXISCAN STRESS TEST W/ MYOCARDIAL PERFUSION Routine 03/23/2025 4:35 PM EDT 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 History of coronary angioplasty with insertion of stent FERGUSON (dyspnea on exertion) LIPOPROTEIN Routine 03/09/2025 12:00 PM EDT LIPID PANEL WITH REFLEX TO LIPOPROTEIN NMR Routine 03/09/2025 12:00 PM EDT COMPLETE BLOOD COUNT Routine 03/09/2025 12:00 PM EDT Essential hypertension FERGUSON (dyspnea on exertion) Chronic fatigue ECG 12-LEAD Routine 03/09/2025 8:47 AM EDT 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 from Last 3 Months Results * (ABNORMAL) TRANSTHORACIC ECHOCARDIOGRAM (TTE) COMPLETE W/ CONTRAST (05/18/2025 4:13 PM EDT) Left Atrium Minor Muse 6.3 cm CV PACS Left Atrium Major Muse 6.0 cm CV PACS LA Area Sys (A2C) 20 cm2 CV PACS LA Area Sys (A4C) 20 cm2 CV PACS LA Volume (BP) 52 mL CV PACS RA Area 12.1 cm2 CV PACS RA 2D Volume 23 mL CV PACS Aortic Sinus Valsalva 4.4 cm CV PACS Ascending Aorta 3.8 cm CV PACS IVSD 1.1(A) 0.6 - 1.0 cm CV PACS LVIDD 5.2 4.2 - 5.8 cm CV PACS LVIDS 3.8 2.5 - 4.0 cm CV PACS LVOT Diameter 2.2 cm CV PACS LVPWD 1.1(A) 0.6 - 1.0 cm CV PACS MV E' Tissue Velocity Lateral 3 cm/s CV PACS MV E' Tissue Velocity Septal 3 cm/s CV PACS LVOT Area 3.8 cm2 CV PACS MV Deceleration Camp 2.5 m/s2 CV PACS E Wave Deceleration Time 264(A) 119 - 242 ms CV PACS MV PHT 77 ms CV PACS MV Peak A Praneeth 0.75 m/s CV PACS MV Peak E Praneeth 0.66 m/s CV PACS MV Area PHT 2.9 cm2 CV PACS RV Diastolic Basal Dimension 3.4 2.5 - 4.1 cm CV PACS TR Peak Velocity 2.86 m/s CV PACS TR Peak Gradient 33 mmHg CV PACS E/E' Ratio Septal 22 CV PACS E/E' Ratio Averaged 22 CV PACS Relative Wall Thickness ratio 0.42 CV PACS FS 27 % CV PACS LV Mass 2D 221 g CV PACS Ascending Aorta Index 1.71 cm/m2 CV PACS RA 2D Volume Index 10 mL/m2 CV PACS LVIDD Index 2.34 cm/m2 CV PACS LVIDS Index 1.71 cm/m2 CV PACS E/A Ratio 0.9 CV PACS E/E' Ratio Lateral 22 CV PACS LA Volume Index (BP) 23 mL/m2 CV PACS LV Mass Index 2D 99 g/m2 CV PACS BSA 2.29 m2 CV PACS Anatomical Region Laterality Modality Ultrasound Narrative 05/19/2025 4:05 PM EDT The Sinus of Valsalva is dilated (4.4 cm). The ascending aorta is dilated (3.8 cm). Vigorous left ventricular function. Probably grade 2 diastolic dysfunction. Normal RV function. Mild to moderate TR with mildly elevated PA systolic pressure. No significant change from February 15, 2021. Left Ventricle Left ventricle cavity size is normal. Discrete hypertrophy at the base of the septum. Systolic function is normal with an ejection fraction of 55-60%. There are no regional LV wall motion abnormalities. There is Grade II (moderate) diastolic dysfunction. Right Ventricle Right ventricle cavity appears normal. Systolic function is visually normal. Left Atrium Left atrium cavity size is normal. Right Atrium Right atrium cavity is normal. IVC/SVC Inferior vena cava was not well visualized. Mitral Valve The leaflets are mildly thickened. There is annular calcification. There is trace regurgitation. There is no evidence of mitral valve stenosis. Tricuspid Valve The leaflets exhibit normal excursion. There is mild regurgitation. There is no evidence of tricuspid valve stenosis. Cannot assess RVSP. Aortic Valve The aortic valve is trileaflet. The leaflets are mildly thickened. There is no regurgitation or stenosis. Pulmonic Valve Pulmonic valve structure is normal. There is trace pulmonic valve regurgitation. There is no evidence of pulmonic valve stenosis. Ascending Aorta The Sinus of Valsalva is (4.4 cm). The ascending aorta is (3.8 cm). Pericardium Pericardium appears normal. There is no pericardial effusion. Study Details Overall the study quality was technically difficult. Definity contrast was given to enhance imaging. Study was difficult due to: poor endocardial visualization. Shaina Garg [employer]ENDING ENTERPRISES SUPERVISOR CV ECHO PROCEDURES Fi nal Result * NM LEXISCAN STRESS TEST W/ MYOCARDIAL [...] 03/10/2025 8:07 PM EDT Performed at: [address] [id number] Local Driver: Osmin Lucio MD, Phone: [phone] Shaina Garg VENDING ENTERPRISES SUPERVISOR LAB BLOOD ORDERABLES Final Result Performing Organization Address City/[facility]/ZIP Co de Phone Number [facility] 2 * (ABNORMAL) Lipid panel with reflex to lipoprotein NMR (03/09/2025 12:00 PM EDT) Cholesterol Total 129 100 - 199 mg/dL [...] 1 - 03/10/2025 8:07 PM EDT Test(s) 854793-VRP-Y; 893132-HXT-Q (Total); 172172-Ilodh LDL-P; 443641-WZT Size; 327260-HV-GW Score was developed and its performance characteristics determined by [facility]. It has not been cleared or approved by the Food and Drug Administration. Performed at: 01 - [facility] [id number] Local Driver: Jaylyn Burnett MD, Phone: [phone] Shaina Garg [employer]ENDING ENTERPRISES SUPERVISOR LAB BLOOD ORDERABLES Final Result Performing Organization Address City/[facility]/ZIP Co de Phone Number [facility] 1 * (ABNORMAL) Complete blood count [...] - 03/10/2025 4:06 AM EDT Performed at: [address] [place] [id number] Local Driver: Jaylyn Burnett MD, Phone: [phone] Shaina Garg NP LAB BLOOD ORDERABLES Final Result Performing Organization Address City/[facility]/ZIP Co de Phone Number [facility] 1 * ECG 12 lead (03/09/2025 8:47 AM EDT) [facility] Signature Ventricular Rate ECG 52 BPM GEMUSE Atrial Rate 52 BPM GEMUSE P-R Interval 164 ms GEMUSE QRS Duration 92 ms GEMUSE Q-T Interval 466 ms GEMUSE QTc 433 ms GEMUSE P Wave Muse 29 degrees GEMUSE R Muse 11 degrees GEMUSE T Muse 5 degrees GEMUSE ECG Interpretation Sinus bradycardia with occasional Premature ventricular complexes Otherwise normal ECG When compared with ECG of 21-JUL-2022 10:39, Premature ventricular complexes are now Present Confirmed by MD Nick, Jon ([id number]) on 03/13/2025 2:02:01 PM GEMUSE 03/09/2025 8:42 AM EDT 03/13/2025 2:02 PM EDT Shaina Garg [employer]ENDING ENTERPRISES SUPERVISOR ECG ORDERABLES Edite d Result - Final JULIA from Last 3 Months Insurance MEDICARE [facility] Care Teams Compensation Expert Relationship Specialty Start Date End Date Rafy Russell DO [address] [place] [id number] PCP - General Internal Medicine 03/09/25
--- OUTSIDE RECORDS SUMMARY | 2025-06-07 17:15 | XMS_ITS ---
Author Organization [facility] Address [address] [place] [address] Phone Care Team Providers Care Cash Applications Coordinator Name Role Phone Rafy Russell DO Primary Care Provider Active Problems Problem Noted Date Diagnosed Date Secondary hypercoagulable state ([facility] V24) Assessment & Plan (03/09/2025 [...] to readdress this as indicated. Aortic dilatation ([facility] V24) 03/09/2025 Assessment & Plan [...] on duration rather than intensity. Prostate cancer ([facility] V24, [facility] V28) 06/06 Cancer Staging:Clinical:Stage IIC(cT2a, cN0, cM0, PSA: 7.8, Grade Group: 4) - Unsigned Coronary artery disease invo lving te-[place] coronary artery of [place] heart without angina pectoris 02/11/2022 Assessment & [...] a day with meals. Paroxysmal atrial fibrillation ([facility] V24, [facility] V28) 08/13/2021 Overview (07/15/2024): Last [...] blood count; Future Acute nontraumatic kidney injury ([facility]) 0 10/16/2020 Bilateral renal artery stenosis ([facility] V24) Stage 3a chronic kidney disease ([facility] V24, [facility] V28) 10/16/2020 Hypercholesterolemia 10/16/2020 Assessment & Plan (03/09/2025 9:38 AM EDT): No recent lipid panel on file; we will update a lipid panel and readdress as indicated. In the interim, continue atorvastatin 80 mg daily. Orders: Lipid panel with reflex to direct LDL; Future Hypomagnesemia 10/16/2020 Non-STEMI (non-ST elevated m yocardial infarction) ([facility] V24, [facility] V28) 10/16/2020 Overview (07/15/2024): Last Assessment & Plan: No ischemic symptoms, feeling well. Continue ASA, BB, statin. PAD (peripheral artery disease) ([facility] V24) Aortoiliac occlusive disease ([facility] V24, [facility] V28) 06/01/2018 Claudication of both lower extremities ([facility] V24) 06/01/2018 Groin pain, chronic, right 06/01/2018 Allergic rhinitis 05/07/2018 Chronic obstructive pulmonar y disease ([facility] V24, [facility] V28) 05/07/2018 Essential hypertension 05/07/2018 [...]
--- OUTSIDE RECORDS SUMMARY | 2025-06-07 17:15 | XMS_ITS | Clinical Summary ---
Author Organization [facility] Address [address] [facility] [address] [place] [address] Phone Care Team Providers Care Employment Clerk Name Role Phone Rafy Slade DO Primary [...] Hypercholesterolemia 10/16/2020 Hypomagnesemia 10/16/2020 Myocardial infarction 10/16/2020 Family History Medical History Relation Comments Heart [...] Office Visit [facility] [address] [address] Kelechi Ching MD [address] [address] Health Maintenance Due Date Last Done Comments Pneumococcal Vaccine: 50+ Years (1 of 2 - PCV) 12/08/1964 Influenza Vaccine (#1) 2025 , 05/06/2019, 05/24/2018, Additional history exists Hepatitis B Vaccine Aged Out No longe r eligible based on patient's age to complete this topic Insurance [facility] Medicare [facility] Medicare Care Teams Employment Clerk Relationship Specialty Start Date End Date Rafy Slade DO [address] [facility] [address] [place] [address] PCP - General 08/13/20
== END 2025-06-07 14:02 | disposition home or self-care (01) ==
LOC: HO.HMGAL 14:01
PROVIDERS: PCP Internal Medicine; Visit Provider Registered Nurse Emergency
DX: J30.89 Other allergic rhinitis (principal)
CPT/HCPCS: 95117; 95165

== ENCOUNTER 2025-07-10 13:59 | Outpatient (AMB) | payer MEDICARE, SELFPAY ==
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
== END 2025-07-10 13:59 | disposition home or self-care (01) ==
LOC: HO.HMGAL 13:59
PROVIDERS: PCP Internal Medicine; Visit Provider Registered Nurse Emergency
DX: J30.89 Other allergic rhinitis (principal)
CPT/HCPCS: 95117; 95165